=== PATIENT | female | born 1940 | race Caucasian/White ===

== ENCOUNTER 2019-09-13 16:59 | Inpatient (IN) | payer OTHER, MEDICAID ==
[~2019-09-13] VITALS: Ht 175.3 cm; Wt 65.9 kg
[~2019-09-13 16:59] MED LIST: ACET-1172 PO; ALBU17AE26; BENA1TAB4 PO; ESOM40CA PO; FLUT12AE8 INH; PARO-41; [UNRECOGNIZED DRUG - CODE]
[2019-09-13 17:14] VITALS: BP_SYST 140
--- NOTE | 2019-09-13 17:15 | NUR ---
Patient to ER bed 3 to gown for evaluation. Side rails up.
--- NOTE | 2019-09-13 17:20 | NUR ---
PATIENT PRESENTS TO THE ER WITH HX OF FALLING YESTERDAY MORNING WITH TRAUMA TO LEFT UPPER ARM AND HAND; PATIENT HAS BEEN FALLING FREQUENTLY AND HAS NUMBNESS AND WEAKNESS REPORTED; PATIENT TO ER #3 AT 1710 AND ERMD EVALUATION AT 1720
--- NOTE | 2019-09-13 17:28 | NUR ---
ER at bedside examining patient.
[2019-09-13] MEDS ORDERED: MULT-74 PO (17:35)
[2019-09-13] MEDS ORDERED: ACET325T53 PO (17:35)
[2019-09-13] MEDS ORDERED: LORA0.5T PO (17:35)
[2019-09-13] MEDS ORDERED: DOCU250C71 PO (17:35)
[2019-09-13] MEDS ORDERED: CHOL50004 PO (17:35)
[2019-09-13] MEDS ORDERED: ESCI20TA PO (17:35)
[2019-09-13] MEDS ORDERED: MECL12.5 PO (17:35)
[2019-09-13] MEDS ORDERED: CRAN450T9 PO (17:35)
[2019-09-13] MEDS ORDERED: MEMA10TA PO (17:35)
[2019-09-13] MEDS ORDERED: DONE10TA4 PO (17:35)
[2019-09-13] MEDS ORDERED: ERGO500020 PO (17:35)
[2019-09-13 17:59] LABS: BASOPHILS # (AUTO) 0.1 K/uL (0.0-0.2); BASOPHILS % (AUTO) 1.2 % (0.0-2.0); EOSINOPHILS # (AUTO) 0.1 K/uL (0.0-0.4); EOSINOPHILS % (AUTO) 1.6 % (0.0-4.0); HEMATOCRIT 39.1 % (36-48); LYMPHOCYTES # (AUTO) 1.6 K/uL (1.0-5.5); LYMPHOCYTES % (AUTO) 28.7 % (20.5-51.5); MEAN CORPUSCULAR HEMOGLOBIN 31 pg (27-31); MEAN CORPUSCULAR HGB CONC 33 % (32-36); MEAN CORPUSCULAR VOLUME 94 fL (79.0-98.0); MONOCYTES # (AUTO) 0.7 K/uL (0.0-1.0); MONOCYTES % (AUTO) 11.7 % (1.7-9.3); NEUTROPHILS # (AUTO) 3.2 K/uL (1.8-7.7); NEUTROPHILS % (AUTO) 56.8 % (40.0-70.0); PLATELET COUNT (AUTO) 165 K/uL (130-430); RED BLOOD CELL COUNT(AUTO) 4.16 MIL/uL (4.2-6.2); RED CELL DISTRIBUTION WIDTH 13.7 % (9.0-15.0); WHITE BLOOD COUNT (AUTO) 5.7 K/uL (4.8-10.8)
--- NOTE | 2019-09-13 18:00 | NUR ---
X-RAY AT THE BEDSIDE.
--- NOTE | 2019-09-13 18:05 | NUR ---
Medication reconciliation completed with information provided by MEDICAL RECORD. Any prior medication reconciliation on file was reviewed and corrected.
[2019-09-13 18:16] LABS: ANION GAP 6 (5-15); CALCIUM 8.4 mg/dL (8.4-11.0); CHLORIDE 103 mmol/L (98-107); CREATININE 0.68 mg/dL (0.55-1.30); GLUCOSE 102 mg/dL (70-99); POTASSIUM 3.7 mmol/L (3.5-5.1); PROTHROMBIN TIME 9.9 SECS (9.5-12.5); SODIUM SERUM 139 mmol/L (136-145); UREA NITROGEN, BLOOD 16 mg/dL (8-21)
[2019-09-13 18:21] LABS: ALANINE AMINOTRANSFERASE 20 U/L (12-78); ALBUMIN 3.2 g/dL (3.4-4.8); ASPARTATE AMINOTRANSFERASE 12 U/L (10-37); TOTAL BILIRUBIN 0.2 mg/dL (0.0-1.0)
[2019-09-13 18:23] LABS: ALCOHOL, BLOOD < 3 mg/dL (<10)
[2019-09-13 18:24] LABS: ACETAMINOPHEN < 1 ug/mL (1-30)
[2019-09-13 18:34] LABS: BILIRUBIN,URINE NEGATIVE (NEGATIVE); BLOOD, URINE NEGATIVE (NEGATIVE); COLOR,URINE YELLOW (YELLOW); GLUCOSE,URINE NEGATIVE (NEGATIVE); KETONES,URINE NEGATIVE (NEGATIVE); LEUKOCYTE ESTERASE ,URINE TRACE (NEGATIVE); NITRITE, URINE NEGATIVE (NEGATIVE); PROTEIN URINE NEGATIVE (NEGATIVE); UROBILINOGEN,URINE 0.2 (0.2-1.0)
[2019-09-13 18:38] LABS: CLARITY/URINE SLIGHTLY HAZY (CLEAR)
[2019-09-13 18:45] LABS: RBC,URINE 0-3 /HPF (0-3)
[2019-09-13 18:46] LABS: BACTERIA,URINE MODERATE /HPF (None Seen)
[2019-09-13 18:51] LABS: BARBITURATE, URINE NEGATIVE (NEG <=200); BENZODIAZEPINE, URINE NEGATIVE (NEG <=150); CANNABINOID, URINE NEGATIVE (NEG <=50); COCAINE, URINE NEGATIVE (NEG <=150); METHAMPHETAMINES SCREEN,URINE NEGATIVE (NEG <=500); OPIATE, URINE NEGATIVE (NEG <=100); PHENCYCLIDINE SCREEN,URINE NEGATIVE (NEG <=25); UR TRICYCLIC ANTIDEPRESSANTS NEGATIVE (NEG <=300); URINE AMPHETAMINE NEGATIVE (NEG <=500); URINE METHADONE NEGATIVE (NEG <=200); URINE OXYCODONE SCREEN NEGATIVE (NEG <=100); URINE PROPOXYPHENE SCREEN NEGATIVE (NEG <=300)
[2019-09-13] MEDS ORDERED: cefTRIAXone 1 GM IVPB PREMIX 50 ML IV ONE (19:15)
--- NOTE | 2019-09-13 19:18 | NUR ---
# 20 gauge angiocath placed to LAC. Use of asceptic technique. Opsite placed over site. Blood return noted. Blood for lab drawn from site. Flushed with 10 cc of normal saline. No evidence of infiltration noted. Patient tolerated well.
--- NOTE | 2019-09-13 19:20 | NUR ---
report given to Shu DALE. Pt is in stable condition
--- NOTE | 2019-09-13 19:30 | NUR ---
called for a tele bed. Spoke w/ Katya GARZA
--- NOTE | 2019-09-13 19:54 | NUR ---
Patient will be admitted to care of . Admitted to Tele unit. Will go to room 121A. Belongings list completed. Complete and up to date summary report printed. SBAR report to be given at bedside with opportunity for questions.
--- NOTE | 2019-09-13 20:11 | NUR ---
ADMISSION NOTE Received patient from ER via zaynab, received report from Shu DALE. Patient admitted with diagnosis of Urinary Tract Infection. Patient oriented to hospital routine, call light, toileting and safety-patient verbalized understanding.
--- NOTE | 2019-09-13 20:11 | NUR ---
Transfer to Tele via ACLS protocol. Licensed nurse present. IV present no signs or symptoms of infiltration.
[2019-09-13 20:26] VITALS: BP_SYST 126
--- NOTE | 2019-09-13 20:40 | NUR ---
INITIAL NOTES PATIENT IS STABLE AND IN BED. NO S/S OF RESPIRATORY DISTRESS NOTED. PATIENT IS AOX1. 0RE-ORIENTED PATIENT AT THIS TIME. PATIENT UNSUCCESSFULLY DEMONSTRATES USAGE OF CALL LIGHT AT THIS TIME. WILL CONTINUE TO MONITOR. PLAN OF CARE IS DISCUSSED WITH PATIENT AT THIS TIME. FALL, SAFETY, ASPIRATION, AND RESPIRATORY PRECAUTIONS WILL BE IN PLACE THROUGHOUT THE SHIFT.
--- NOTE | 2019-09-13 20:45 | NUR ---
Note jenni in EDM - 09/13/19 at 2106 by [email or web address] Pt medicated with nitroglycerin SL per MD order. Tolerated well. WIll cont. to monitor on cardiac/O2.
--- NOTE | 2019-09-13 20:50 | NUR ---
Note jenni in EDM - 09/13/19 at 2107 by [email or web address] Pt states she still feels chest tightness. Pt medicated with nitroglycerin SL per MD order. Tolerated well. WIll cont. to monitor on cardiac/O2.
--- NOTE | 2019-09-13 22:40 | NUR ---
ROUNDING PATIENT BED WAS CHANGED AT THIS TIME DUE TO SOILAGE. PATIENT WAS CLEANED. PATIENT WAS REPOSITION FOR COMFORT. PATIENT IS STABLE AND SHOWS NO S/S OF RESPIRATORY DISTRESS. CALL LIGHT IN REACH. BED IS LOCKED, ALARMED, AND AT THE LOWEST POSITION.WILL CONTINUE TO MONITOR.
--- NOTE | 2019-09-13 23:55 | NUR ---
Neuro Consultation Paged Reason for consultation: S/P Fall Was consult called: Yes Person who was notified: Luna Consulting Physician: Carlos Siu Ultrasonic Welding Machine Operator Ultrasonic Welding Machine Operator Specialty: Neurology Ordered By: Dr Fermin
--- NOTE | 2019-09-13 23:59 | NUR ---
ID Consultation Paged Reason for consultation: UTI Was consult called: Yes Person who was notified: Maranda Belloheet is faxed to as requested Consulting Physician: Jean Barragan Puddler Pile Driving Puddler Pile Driving Specialty: Infectious Disease Ordered By: Dr Fermin
[2019-09-14] VITALS: BP_SYST 133
--- NOTE | 2019-09-14 00:40 | NUR ---
PATIENT TOOK OUT IV AT THIS TIME. PATIENT REFUSES A NEW ONE PLACED AT THIS TIME. PATIENT REQUESTED IV IN THE MORNING. WILL CONTINUE TO EDUCATE. PATIENT IS OTHERWISE STABLE. NO S/S OF RESPIRATORY DISTRESS NOTED. CALL LIGHT IN REACH. BED IS LOCKED, ALARMED, AND AT THE LOWEST POSITION. Addendum: 09/14/19 at 0242 by Branden Lewis RN IV TIP IS INTACT AND NO MAJOR S/S OF BLEEDING NOTED.
--- NOTE | 2019-09-14 02:40 | NUR ---
PATIENT IS SLEEPING IN BED AND IS STABLE. NO S/S OF RESPIRATORY DISTRESS NOTED. CALL LIGHT IN REACH. BED IS LOCKED, ALARMED, AND AT THE LOWEST POSITION.
--- NOTE | 2019-09-14 04:04 | NUR ---
PATIENT IS LAYING IN BED AND STABLE. NO S/S OF RESPIRATORY DISTRESS NOTED. CALL LIGHT IN REACH. BED IS LOCKED, ALARMED, AND AT THE LOWEST POSITION. WILL CONTINUE TO MONITOR.
--- NOTE | 2019-09-14 04:42 | NUR ---
NEW IV PLACED ON RIGHT FOREARM 22G. PATIENT TOLERATED WELL. BLOOD RETURN AND FLUSHED. PATIENT IS STABLE. NO S/S OF RESPIRATORY DISTRESS NOTED. CALL LIGHT IN REACH. BED IS LOCKED, ALARMED, AND AT THE LOWEST POSITION.
--- NOTE | 2019-09-14 06:10 | NUR ---
CLOSING NOTES PATIENT IS STABLE AND IN BED. NO S/S OF RESPIRATORY DISTRESS NOTED. CALL LIGHT IN REACH. BED IS LOCKED, ALARMED, AND AT THE LOWEST POSITION. FALL, SAFETY, ASPIRATION, AND RESPIRATORY PRECAUTIONS HAS BEEN IN PLACE THROUGHOUT THE SHIFT. WILL CONTINUE TO MONITOR UNTIL REPORT IS GIVEN TO AM NURSE BY BEDSIDE.
--- NOTE | 2019-09-14 10:06 | NUR ---
Nutrition Update Benjamin Scale 15 noted. Pt admitted for UTI. Diet: [facility] BMI: 21.5 kg/m2 RD to follow per nutrition care standards.
--- NOTE | 2019-09-14 11:52 | NUR ---
CONSULTATION PAGED/CALLED Reason for Consultation: [] ARRYTHMIA Person Who was Notified: [] MELANIE Consulting Physician: [] DR HOLLEY MACHINE REPAIRER FOR DR SUE MCGUIRE Bilingual Counter Sales Retail Specialty: [] CARDIOLOGY Ordering Physician: [] DR PATEL
--- NOTE | 2019-09-14 11:56 | NUR ---
CONSULTATION PAGED/CALLED Reason for Consultation: [] CONFUSION Person Who was Notified: [] JOE Consulting Physician: [] DR El THOMPSON Jack Spooler Tender Specialty: [] NEUROLOGY Ordering Physician: [] DR PATEL
[2019-09-14 13:57] VITALS: BP_SYST 133
[2019-09-14] MEDS ORDERED: LORazepam 1 MG TABLET PO PRN (15:00)
[2019-09-14] MEDS ORDERED: CITALOPRAM HYDROBROMIDE 20 MG TABLET PO ONE (15:00)
[2019-09-14] MEDS ORDERED: ACETAMINOPHEN 325 MG TABLET PO PRN (15:00)
[2019-09-14] MEDS ORDERED: MECLIZINE HCL 25 MG TABLET (ANITVERT) PO PRN (15:00)
[2019-09-14] MEDS ORDERED: HALOPERIDOL LACTATE 5 MG/ML VIAL IM ONE ×2 (15:00→15:15)
--- NOTE | 2019-09-14 15:04 | NUR ---
CONSULTATION PAGED/CALLED Reason for Consultation: [] CONFUSION/COMBATIVE Person Who was Notified: [] RAYNA Consulting Physician: [] DR Wellington LENTZ Interior Design Project Manager Specialty: [] PSYCH Ordering Physician: [] DR PATEL
[2019-09-14] MEDS ORDERED: HALOPERIDOL LACTATE 5 MG/ML VIAL ONE (15:16)
--- NOTE | 2019-09-14 16:33 | NUR ---
Threshing Department Supervisor: Complete a DCPA. STRAIGHT KNIFE MACHINE CUTTER met with pt. briefly. She was unpleasant, was guarded and thought STRAIGHT KNIFE MACHINE CUTTER was "One of them" referring to a Rn. Pt. stated with foul language she was not going to speak to STRAIGHT KNIFE MACHINE CUTTER and info was none of her business. STRAIGHT KNIFE MACHINE CUTTER thanked her for her time and will contact someone of pts. facesheet. STRAIGHT KNIFE MACHINE CUTTER called pts. SNF, [facility], at [address] [place] [address] [place] [phone], ph is . STRAIGHT KNIFE MACHINE CUTTER spoke to Jayesh who stated pt. does not have family, has not had any visitors and may be coming back to this [facility]. Jayesh was not sure. Jayesh also stated pt. has Major Depressive Disorder, unspecified Psychosis, Dementia and to her knowledge has not had SI.. Pt is very confused, pending psyc. consult. When asked if pt. had ever had suicidal ideations, Jayesh stated , not to her knowledge. Re. pts. being alert, Jayesh stated pt. goes in and out and it varies. STRAIGHT KNIFE MACHINE CUTTER thanked her for her assistance.
[2019-09-14 18:08] VITALS: BP_SYST 156
--- NOTE | 2019-09-14 19:59 | NUR ---
Initial note: Received report from dayshift RN. Patient is awake, alert, and confused. Laying in bed. No acute distress, tolerating room air. No IV site present, will place IV site once patient is more calm. Call light with patient. Safety, fall, aspiration precautions in place. Will continue with plan of care.
[2019-09-14 20:10] VITALS: BP_SYST 155
[2019-09-14] MEDS: MEMANTINE HCL 5 MG TABLET PO SCH (20:16)
[2019-09-14] MEDS: DONEPEZIL HCL 5 MG TABLET (ARICEPT) PO SCH (20:16)
[2019-09-14] MEDS ORDERED: cefTRIAXone 1 GM IVPB PREMIX 50 ML IV ONE (21:25)
[2019-09-14] MEDS: cefTRIAXone 1 GM IVPB PREMIX 50 ML IV SCH (22:30)
--- NOTE | 2019-09-14 22:32 | NUR ---
IV PLACEMENT: # 22 gauge angiocath placed to left forearm. Flushed with 10 ML of normal saline. No evidence of infiltration noted. Patient tolerated well. Due IV antibiotics initiated.
[2019-09-15 00:12] VITALS: BP_SYST 162
--- NOTE | 2019-09-15 01:48 | NUR ---
Rounds: Patient is resting in bed, no acute distress. Tolerating room air. IV site is patent and intact. Call light with patient. Will continue to monitor.
--- NOTE | 2019-09-15 04:27 | NUR ---
Rounds: Patient is sleeping. No acute distress. Even and unlabored respirations on room air. IV site to left forearm intact. Call light with patient. Will continue to monitor.
[2019-09-15 06:48] LABS: BASOPHILS # (AUTO) 0.1 K/uL (0.0-0.2); BASOPHILS % (AUTO) 1.2 % (0.0-2.0); EOSINOPHILS # (AUTO) 0.1 K/uL (0.0-0.4); HEMATOCRIT 43.1 % (36-48); HEMOGLOBIN 14.3 g/dL (12.0-16.0); LYMPHOCYTES % (AUTO) 34.5 % (20.5-51.5); MEAN CORPUSCULAR HEMOGLOBIN 31 pg (27-31); MEAN CORPUSCULAR HGB CONC 33 % (32-36); MEAN CORPUSCULAR VOLUME 94 fL (79.0-98.0); MONOCYTES # (AUTO) 0.7 K/uL (0.0-1.0); MONOCYTES % (AUTO) 11.5 % (1.7-9.3); NEUTROPHILS # (AUTO) 2.9 K/uL (1.8-7.7); NEUTROPHILS % (AUTO) 50.8 % (40.0-70.0); PLATELET COUNT (AUTO) 163 K/uL (130-430); RED BLOOD CELL COUNT(AUTO) 4.59 MIL/uL (4.2-6.2); RED CELL DISTRIBUTION WIDTH 13.7 % (9.0-15.0); WHITE BLOOD COUNT (AUTO) 5.7 K/uL (4.8-10.8)
--- NOTE | 2019-09-15 06:48 | NUR ---
Closing note: Patient is resting in bed, no acute distress. Tolerating room air. IV site to left forearm is patent and benign, saline locked. Incontinence care rendered, patient tolerated well. All needs met. Safety, fall, aspiration precautions observed. Hourly rounding performed throughout shift. Will endorse care to dayshift RN.
[2019-09-15 06:54] LABS: PROTHROMBIN TIME 10.3 SECS (9.5-12.5)
[2019-09-15 07:10] LABS: ALANINE AMINOTRANSFERASE 17 U/L (12-78); ALBUMIN 3.3 g/dL (3.4-4.8); AMYLASE 42 U/L (0-100); ANION GAP 5 (5-15); ASPARTATE AMINOTRANSFERASE 17 U/L (10-37); CALCIUM 8.8 mg/dL (8.4-11.0); CHLORIDE 103 mmol/L (98-107); CREATININE 0.78 mg/dL (0.55-1.30); GLUCOSE 85 mg/dL (70-99); LIPASE 79 U/L (73-393); PHOSPHORUS 3.9 mg/dL (2.7-4.5); POTASSIUM 3.5 mmol/L (3.5-5.1); SODIUM SERUM 137 mmol/L (136-145); TOTAL BILIRUBIN 0.5 mg/dL (0.0-1.0); UREA NITROGEN, BLOOD 12 mg/dL (8-21)
--- NOTE | 2019-09-15 07:30 | NUR ---
opening note patient is resting in bed, no signs of distress at this time, alert and oriented to name and age, educated conveyor worker light system and plan of care, patient did not give me a verbal response, patient kept closing her eyes, IV site dressing in tact, brake armed, three side rails up, call light within reach, room close to station, bed alarm on, fall/safety precautions in place, SCDs on, allergy band on.
[2019-09-15 08:00] VITALS: BP_SYST 123
[2019-09-15] MEDS: DOCUSATE SODIUM 250 MG CAPSULE PO SCH (08:17)
[2019-09-15] MEDS: CHOLECALCIFEROL (VITAMIN D3) 2,000 UNIT TABLET PO SCH (08:18)
[2019-09-15] MEDS: CITALOPRAM HYDROBROMIDE 20 MG TABLET PO SCH (08:18)
[2019-09-15] MEDS: MULTIVITS,CA,MINERALS/IRON/FA 1 TABLET PO SCH (08:18)
[2019-09-15] MEDS: MEMANTINE HCL 5 MG TABLET PO SCH ×2 (08:19→20:35)
[2019-09-15] MEDS ORDERED: NON-FORMULARY MEDICATION (Cranberry Fruit (Cranberry) 450 MG) PO SCH (09:00)
[2019-09-15 09:07] LABS: THYROID STIMULATING HORMONE 0.81 uIu/mL (0.36-3.74)
--- NOTE | 2019-09-15 09:54 | NUR ---
Dr Coleman came for neurology consult, saw patient at bedside.
--- NOTE | 2019-09-15 10:48 | NUR ---
rounds patient is resting in bed, eyes closed breathing easy and nonlabored, no signs of distress at this time, no needs addressed at this time, fall/safety precautions in place.
--- NOTE | 2019-09-15 12:10 | NUR ---
rounds repositioned patient, assisted her with her lunch tray, no signs of distress at this time, no other needs addressed at this time, fall/safety precautions in place. Dr Fermin's PURSE FRAMER came to see patient, updated her on patient.
[2019-09-15 12:19] VITALS: BP_SYST 124
--- NOTE | 2019-09-15 14:08 | NUR ---
rounds patient is resting in bed, opening and closing her eyes, patient stated she just wants to rest, no signs of distress at this time, no other needs addressed at this time, falls/safety precautions in place.
--- NOTE | 2019-09-15 16:15 | NUR ---
patient resting in bed eyes closed breathing easy and nonlabored, no signs of distress at this time, no other needs addressed at this time, fall/safety precautions in place.
[2019-09-15 16:23] VITALS: BP_SYST 118
--- NOTE | 2019-09-15 18:52 | NUR ---
closing note patient is resting in bed, no signs of distress at this time, IV site dressing in tact, brake armed, three side rails up, call light within reach, room close to station, bed alarm on, fall/safety precautions in place, SCDs on, allergy band on, will endorse report to night time nanny nurse to continue with care, patient is incontinent and weak to walk to the bathroom.
--- NOTE | 2019-09-15 19:24 | NUR ---
CONSULTATION PAGED/CALLED Reason for Consultation: CONFUSION Person Who was Notified: BOBBY Consulting Physician: / ONCALL Customer Service Sales Associate Specialty: PSYCH Ordering Physician:
--- NOTE | 2019-09-15 19:30 | NUR ---
Pt is fully awake, alert and oriented to her name only. No distress noted and no c/o pain or discomfort. Skin is warm and dry to touch. No signs or symptoms of hypoglycemia or hyperglycemia noted. Saline lock in LFA is without any signs of infiltration. Fall and safety precautions are in place.
[2019-09-15 20:00] VITALS: BP_SYST 133
[2019-09-15] MEDS: cefTRIAXone 1 GM IVPB PREMIX 50 ML IV SCH (20:34)
[2019-09-15] MEDS: DONEPEZIL HCL 5 MG TABLET (ARICEPT) PO SCH (20:35)
--- NOTE | 2019-09-15 20:35 | NUR ---
Scheduled HS medications given. No difficulty swallowing noted. Fall and safety precautions are in place.
[2019-09-15] MEDS ORDERED: cefTRIAXone 1 GM IVPB PREMIX 50 ML IV ONE (20:38)
--- NOTE | 2019-09-15 22:30 | NUR ---
Pt is awake and resting quietly in bed. Fall and safety precautions are in place.
[2019-09-16 00:15] VITALS: BP_SYST 140
--- NOTE | 2019-09-16 00:22 | NUR ---
Sleeping without any distress noted. Fall and safety precautions are in place.
--- NOTE | 2019-09-16 02:28 | NUR ---
Pt is sleeping comfortably in bed. Fall and safety precautions are in place.
--- NOTE | 2019-09-16 04:08 | NUR ---
Pt is resting quietly in bed. No respiratory distress noted. Fall and safety precautions are in place.
--- NOTE | 2019-09-16 06:30 | NUR ---
Pt is awake and resting comfortably in bed. All pt's needs were attended to. Fall and safety precautions are in place. Saline lock is without any signs of infiltration. Will endorse to day shift nurse.
--- NOTE | 2019-09-16 07:20 | NUR ---
opening note patient is resting in bed, no signs of distress at this time, alert and oriented to name but unable to remember or age at this time, educated farm contractor buyer light system and plan of care, patient verbalized understanding to me, IV site dressing in tact, brake armed, three side rails up, call light within reach, room close to station, bed alarm on, fall/safety precautions in place, SCDs on, allergy band on.
[2019-09-16 08:00] VITALS: BP_SYST 131
[2019-09-16] MEDS: DOCUSATE SODIUM 250 MG CAPSULE PO SCH (08:16)
[2019-09-16] MEDS: CITALOPRAM HYDROBROMIDE 20 MG TABLET PO SCH (08:16)
[2019-09-16] MEDS: MEMANTINE HCL 5 MG TABLET PO SCH ×2 (08:16→20:42)
[2019-09-16] MEDS: MULTIVITS,CA,MINERALS/IRON/FA 1 TABLET PO SCH (08:16)
[2019-09-16] MEDS: CHOLECALCIFEROL (VITAMIN D3) 2,000 UNIT TABLET PO SCH (08:16)
--- NOTE | 2019-09-16 10:25 | NUR ---
patient is resting in bed eyes closed breathing easy and nonlabored, no signs of distress at this time, no needs addressed at this time, fall/safety precautions in place.
--- NOTE | 2019-09-16 12:15 | NUR ---
rounds repositioned patient, assisted her with her lunch tray, no signs of distress at this time, no other needs addressed at this time, fall/safety precautions in place. Dr Fermin's TEACHER MUSIC came to see patient, updated her on patient.
[2019-09-16 12:24] VITALS: BP_SYST 135
[2019-09-16 16:18] VITALS: BP_SYST 141
--- NOTE | 2019-09-16 18:34 | NUR ---
closing note patient is resting in bed, no signs of distress at this time, IV site dressing in tact, brake armed, three side rails up, call light within reach, room close to station, bed alarm on, fall/safety precautions in place, SCDs on, allergy band on, will endorse report to senior graduate advisor nurse to continue with care, patient is incontinent and weak to walk to the bathroom.
--- NOTE | 2019-09-16 19:15 | NUR ---
OPENING NOTE Late entry due patient care. Bedside report received from daysokft nurse. Patient received lying in bed, awake, confused. No s/s of acute distress noted. Breathing even and unlabored. SCDs attached and operating. IV site patent, no signs of infiltration or infection noted. Call light with patient. Bed alarm on. Bed is locked and at lowest position. Will continue to monitor.
[2019-09-16] MEDS: DONEPEZIL HCL 5 MG TABLET (ARICEPT) PO SCH (20:42)
--- NOTE | 2019-09-16 21:00 | NUR ---
INCONTINENT CARE Patient being cleaned by HABILITATION TRAINING SPECIALIST at this time. Patient tolerating well. All needs met. Call light with patient. Bed alarm on. Will continue to monitor.
[2019-09-16] MEDS ORDERED: cefTRIAXone 1 GM IVPB PREMIX 50 ML IV ONE (21:19)
[2019-09-16] MEDS: cefTRIAXone 1 GM IVPB PREMIX 50 ML IV SCH (21:25)
--- NOTE | 2019-09-16 23:00 | NUR ---
ROUNDS Patient in bed asleep at this time. No s/s of acute distress noted. Breathing even and unlabored. All needs met. Call light with patient. Bed alarm on. Will continue to monitor.
[2019-09-17 00:25] VITALS: BP_SYST 150
--- NOTE | 2019-09-17 01:00 | NUR ---
ROUNDS Patient in bed asleep at this time. No signs of discomfort noted. Chest rise and fall even bilaterally. Call light with patient. Bed alarm on. Will continue to monitor.
--- NOTE | 2019-09-17 03:00 | NUR ---
ROUNDS Patient in bed asleep. No s/s of acute distress noted. Bed alarm on. Will continue to monitor.
--- NOTE | 2019-09-17 05:00 | NUR ---
ROUNDS Patient in bed asleep. No signs of discomfort noted. Bed alarm on. Will continue to monitor.
--- NOTE | 2019-09-17 06:54 | NUR ---
CLOSING NOTES Patient in bed asleep. No s/s of acute distress noted. Breathing even and unlabored. SCDs attached and operating. All needs met throughout shift. Fall and safety precautions maintained throughout shift. Will continue to monitor until patient care is endorsed to oncoming dayshift nurse.
--- NOTE | 2019-09-17 07:32 | NUR ---
OPENING NOTE Patient sitting in upright position and eating the breakfast. No acute distress. Denied of pain. Skin warm and dry to touch. SL intact to LFA, no redness, no swelling. Safety measure maintained. Call light within reached. Bed locked in low position, side rails up, bed alarm on. Will continue to monitor.
[2019-09-17 07:40] VITALS: BP_SYST 102
[2019-09-17] MEDS ORDERED: [UNRECOGNIZED DRUG - REMARK] PO SCH (09:00)
[2019-09-17] MEDS: MEMANTINE HCL 5 MG TABLET PO SCH (10:10)
[2019-09-17] MEDS: CITALOPRAM HYDROBROMIDE 20 MG TABLET PO SCH (10:10)
[2019-09-17] MEDS: CHOLECALCIFEROL (VITAMIN D3) 2,000 UNIT TABLET PO SCH (10:10)
[2019-09-17] MEDS: MULTIVITS,CA,MINERALS/IRON/FA 1 TABLET PO SCH (10:10)
[2019-09-17] MEDS: DOCUSATE SODIUM 250 MG CAPSULE PO SCH (10:10)
--- NOTE | 2019-09-17 10:10 | NUR ---
AM SCHEDULE MED GIVEN, TOLERATED WELL.
--- NOTE | 2019-09-17 12:10 | NUR ---
LUNCH Patient sitting in upright position and eating lunch. No acute distress. Safety measure maintained. Call light within reached. Bed locked in low position, side rails up, bed alarm on. Continue to monitor.
[2019-09-17 13:15] VITALS: BP_SYST 117
--- NOTE | 2019-09-17 13:30 | NUR ---
DISCHARGE Alex Izaguirre make round with the discharge order, noted and carried out.
--- NOTE | 2019-09-17 15:20 | NUR ---
ROUND Patient resting in the bed with eyes closed. No acute distress. Safety measure maintained. Call light within reached. Bed locked in low position, side rails up, bed alarm on. Continue to monitor.
--- NOTE | 2019-09-17 15:59 | NUR ---
Discharge Planning: Pt has orders to DC back to [facility] ([phone]); WHEEL AND CASTER REPAIRER spoke with Halie; pt will go back to room 26C. Transportation has been arranged with [facility] ([phone]); [facility] will call with an ETA; [facility] was told to call nurses station with ETA. Packet taken to nurses station.
--- NOTE | 2019-09-17 17:00 | NUR ---
ROUND Patient resting in the bed. No acute distress. Safety measure maintained. Call light within reached. Bed locked in low position, side rails up, bed alarm on. Continue to monitor.
[2019-09-17 17:59] VITALS: BP_SYST 128
--- NOTE | 2019-09-17 18:40 | NUR ---
CLOSING NOTE Patient resting in the bed. No acute distress. Skin warm and dry to touch. SL intact to LFA, no redness, no swelling. All needs met. Safety measure maintained. Call light within reached. Bed locked in low position, side rails up, bed alarm on. Will endorse to night nurse.
[2019-09-17 20:08] VITALS: BP_SYST 145
--- NOTE | 2019-09-17 20:30 | NUR ---
D/C Patient Patient given medication reconciliation form and D/C instructions. Exit Care provided. Patient verbalized understanding. discussed with patient the results and treatment provided. Discharged back to [facility] via S. Patient in stable condition, ID band removed. Left forearm 22 gauge IV site in place for Rocephin IVPB x 5 days. Patient educated on pain management. All belongings sent with patient.
[2019-09-17] MEDS ORDERED: DONEPEZIL HCL 5 MG TABLET (ARICEPT) PO SCH (21:00)
[2019-09-18] MEDS ORDERED: CITALOPRAM HYDROBROMIDE 20 MG TABLET PO SCH (09:00)
[2019-09-18] MEDS ORDERED: MEMANTINE HCL 5 MG TABLET PO SCH (09:00)
== END 2019-09-17 20:30 | DRG 690 ==
LOC: SED 16:59 → STU 19:26 → SMU 09-14 14:05
PROVIDERS: ADMIT Internal Medicine; ATTEND Internal Medicine
DX: N39.0 Urinary tract infection, site not specified (principal); I11.9 Hypertensive heart disease without heart failure; B96.20 Unspecified Escherichia coli [E. coli] as the cause of diseases classified elsewhere; E11.9 Type 2 diabetes mellitus without complications; E87.6 Hypokalemia; F02.80 Dementia in other diseases classified elsewhere, unspecified severity, without behavioral disturbance, psychotic disturbance, mood disturbance, and anxiety; G30.9 Alzheimer's disease, unspecified; J45.909 Unspecified asthma, uncomplicated; M17.0 Bilateral primary osteoarthritis of knee; M81.0 Age-related osteoporosis without current pathological fracture; R29.6 Repeated falls; M47.9 Spondylosis, unspecified; Z79.899 Other long term (current) drug therapy; Z88.1 Allergy status to other antibiotic agents; Z88.2 Allergy status to sulfonamides
CPT/HCPCS: 36415; 70450-TC; 71045; 80053; 80307; 81000-TC; 82140-TC; 82150-TC; 82550-TC; 83605; 83690-TC; 83735-TC; 83880; 84100-TC; 84439; 84443-TC; 84484; 85025; 85610-TC; 85730-TC; 87040-TC; 87081; 87086; 87186-TC; 93005; 93306; 93880; 96365; 97110-GP; 97112-GP; 97530-GP; 99285; G0378; G0480; G0481; G0482; J0696; J1630; J7060